=== PATIENT | female | born 1965 | race Caucasian/White ===

== ENCOUNTER 2017-09-11 16:12 | Emergency (ER) | payer OTHER ==
[~2017-09-11] VITALS: Ht 162.6 cm; Wt 74.8 kg
[~2017-09-11 16:12] MED LIST: NAPROSYN500 MG PO
[2017-09-11 16:21] VITALS: Ht 162.6 cm; Wt 74.8 kg
[2017-09-11 18:27] LABS: BASOPHIL % 0.5 % (0-2); PLATELET COUNT 189 x10^3mcL (130-400); RED CELL DISTRIBUTION WIDTH 13.8 % (11.5-14.5)
[2017-09-11 18:47] LABS: CALCIUM 8.2 mg/dL (8.5-10.1); CARBON DIOXIDE 30.3 mmol/L (21-32); CHLORIDE SERUM 105 mmol/L (98-107); CREATININE SERUM 0.6 mg/dL (0.6-1.0); GFR1 > 60 mL/min; GLUCOSE SERUM 100 mg/dL (74-106); POTASSIUM SERUM 4.1 mmol/L (3.5-5.1); SODIUM SERUM 142 mmol/L (136-145)
[2017-09-11 18:52] LABS: ALBUMIN 3.4 g/dL (3.4-5.0); ALKALINE PHOSPHATASE 69 U/L (46-116); ALT/SGPT 45 U/L (14-59); AST/SGOT 35 U/L (15-37); BILIRUBIN TOTAL 0.32 mg/dL (0.20-1.00); HDL CHOLESTEROL 40 mg/dL (40-60); LIPASE 104 IU/L (73-393); TOTAL PROTEIN, SERUM 7.6 g/dL (6.4-8.2); TRIGLYCERIDES 109 mg/dL (<150)
[2017-09-11 18:56] LABS: T3 TOTAL 1.07 ng/mL
[2017-09-11 18:58] LABS: FREE T4 1.03 ng/dL (0.76-1.46); FREE THYROXINE INDEX 2.3 ug/dL (1.4-4.5)
[2017-09-11 18:59] LABS: microscopic required? NO
[2017-09-11 19:07] LABS: CHOLESTEROL 101 mg/dL (<200); CHOLESTEROL/HDL RATIO 2.5
[2017-09-11 19:20] LABS: urine erythrocyte NEGATIVE (NEGATIVE)
[2017-09-11 20:25] VITALS: BP 120/70
== END 2017-09-11 20:25 | disposition home or self-care (01) ==
LOC: ED 16:12
PROVIDERS: Specialist
DX: R10.31 Right lower quadrant pain (principal); E11.9 Type 2 diabetes mellitus without complications; Z88.5 Allergy status to narcotic agent
CPT/HCPCS: 82962; 83880; 84439; J7030